=== PATIENT | male | born 1965 | race Caucasian/White ===

== ENCOUNTER 2017-01-05 13:00 | Inpatient (IN) | payer OTHER ==
[~2017-01-05] VITALS: Ht 182.9 cm; Wt 90.7 kg
--- NOTE | ~2017-01-05 | HP ---
Unit #: [id number] #: [id number] Patient: CANDIDO GHOTRA [id number] [place] [address] [id number] MR#: [id number] NAME: CANDIDO GHOTRA ROOM: P184 Age: 51 Sex: M Admission Date: 01/05/2017 : 1965 Attending Physician: Uzair Arredondo M.D. Admitting Physician: Uzair Arredondo M.D. Primary Care Physician: Primary Care Physician No HISTORY AND PHYSICAL HISTORY OF PRESENT ILLNESS Candido is a 51 year old admitted to [facility] because of his continued abuse of alcohol. He has had other admissions to this facility for the same. PAST MEDICAL HISTORY 1. Long history of alcohol abuse. 2. Diabetes mellitus. 3. High blood pressure. 4. Hepatitis C. 5. Psoriasis. PAST SURGICAL HISTORY 1. Cholecystectomy. 2. Appendectomy. ALLERGIES No known drug allergies. SOCIAL HISTORY He does not smoke. Drinks a liter of liquor on daily basis. Has a history of illicit drug use. FAMILY HISTORY Medically noncontributory. REVIEW OF SYSTEMS CONSTITUTIONAL: No fever or chills. HEENT: Denies any sore throat, ear pain or runny nose. CARDIOVASCULAR: Denies chest pain, irregular heart rhythm or palpitations. CHEST: Denies shortness of breath or cough. No hemoptysis. GASTROINTESTINAL: Denies nausea, vomiting, diarrhea or chronic constipation. ENDOCRINE: Denies history of increased thirst or urination. No recent significant weight loss or gain. GENITOURINARY: Denies dysuria, frequency, or hematuria. SKIN: Denies any rashes. HEMATOLOGIC: Denies history of increased bleeding or bruising. MUSCULOSKELETAL: Denies any hot, swollen joints. No generalized muscle pain. NEUROLOGIC: Denies problems with vision or speech. No frequent, severe headaches. No numbness, tingling or weakness in any extremities. Denies loss of bladder or bowel control. Unit #: [id number] #: [id number] Patient: CANDIDO GHOTRA CURRENT MEDICATIONS 1. Detox protocol. 2. Celexa 40 mg q. day. 3. Vistaril 40 mg q. day. 4. Neurontin 400 mg t.i.d. PHYSICAL EXAMINATION GENERAL: Alert, well nourished. No apparent distress. VITAL SIGNS: Blood pressure 174/94, heart rate 80, respirations 16, and temperature 98.6. WEIGHT: 200. HEIGHT: 6 feet 0 inches. SKIN: Warm and dry without rash or lesion. HEENT: Normocephalic. TMs not viewed. Oral and nasal passages clear. Conjunctivae clear. PERRLA. EOMs intact. NECK: Supple without lymphadenopathy or thyromegaly. HEART: Regular rate and rhythm without murmur. LUNGS: Clear. ABDOMEN: Soft, nontender. : Not done. EXTREMITIES: No evidence of cyanosis, clubbing or edema. Moves all without focal deficit. NEUROLOGICAL: Grossly within normal limits. Cranial Nerves: II: Visual alcantar are intact. III, IV AND : Extraocular movements are intact. Pupils are equal, round and reactive to light. V: Facial sensation is grossly normal. VII: Facial movements and expression are normal. VIII: Auditory acuity grossly intact. IX, X: Uvula is midline. Phonation is normal. XI: Patient shrugs shoulders and turns head normally. XII: Tongue protrudes in the midline. Sensory and Motor Function: Sensory and motor sensation is grossly normal. Motor: moves all extremities well. Coordination: Gait is normal. Deep Tendon Reflexes: Intact. IMPRESSION Psychiatric admission. RECOMMENDATIONS PSYCHIATRIC: Per psychiatrist. MEDICAL: I see no contraindication to participate in this facility's activities. MEDICAL PROGNOSIS Good. MEDICAL CONDITION Stable. Dictated by... Prerna Spring P.A.-C. for Thanh Castañeda/vi TD: 01/06/2017 14:51 Unit #: [id number] #: [id number] Patient: CANDIDO GHOTRA JOB #: [id number] HISTORY AND PHYSICAL Page 1 of 1 X Prerna Spring HISTORY AND PHYSICAL
--- NOTE | ~2017-01-05 | DS ---
Unit #: [id number] #: [id number] Patient: KEVIN GHOTRA [id number] [place] [address] [id number] MR#: [id number] NAME: KEVIN GHOTRA ROOM: P184 Age: 51 Sex: M Admission Date: 01/05/2017 : 1965 Discharge Date: 01/09/2017 Attending Physician: Uzair Arredondo M.D. Primary Care Physician: Primary Care Physician No DISCHARGE SUMMARY REASON FOR ADMISSION The patient is a 51-year-old white male, admitted for alcohol detox. HOSPITAL COURSE The patient was admitted to the [facility] and placed on routine detoxification protocol for alcohol. He was continued on previously prescribed home medications including, Celexa, Protonix, and Zestril. The patient was also continued on Neurontin and Glucophage, and Campral was added to address alcohol craving. The patient remained seclusive to room throughout much of his stay in the hospital but his detox was completed as of 01/09/2017, and thus his discharge was ordered. DISCHARGE DIAGNOSES [place] I Alcohol use disorder. Dysthymic disorder. [place] II [place] III Hypertension. Gastroesophageal reflux disease. Diabetes mellitus. [place] IV [place] V DISPOSITION ON DISCHARGE The patient is discharged on the following medications: 1. Glucophage 500 mg twice daily for diabetic management 2. Campral 333 mg two tablets three times daily for alcohol craving 3. Neurontin 400 mg three times daily for chronic pain 4. Zestril 40 mg once daily for hypertension 5. Protonix 40 mg once daily for GERD 6. Celexa 40 mg daily for depression PROGNOSIS The patient's prognosis is considered fair. DIET AND ACTIVITY No dietary or physical restrictions were placed on the patient at the time of discharge. Follow up will take place through the auspices of community mental health resources and the chemical dependence intensive outpatient program. Unit #: [id number] #: [id number] Patient: KEVIN GHOTRA Dictated by... Uzair Arredondo M.D. CB/aguilar TD: 01/12/2017 09:28 JOB #: [id number] DISCHARGE SUMMARY Page 1 of 1 X Uzair Arredondo MD DISCHARGE SUMMARY
--- NOTE | ~2017-01-05 | CO ---
Unit #: [id number] #: [id number] Patient: KEVIN GHOTRA [id number] [place] [address] [id number] MR#: [id number] NAME: KEVIN GHOTRA ROOM: 84 Age: 51 Sex: M Admission Date: 01/05/2017 : 1965 Attending Physician: Uzair Arredondo M.D. Consultation Date: 01/07/2017 CONSULTATION REPORT SUSAN Rey is a 51-year-old with history of diabetes mellitus. He admits he has been noncompliant with any kind of medication. He has been on Glucophage in the past, but has been many months. The patient was seen for his admission H and P on 01/06/2017. PLAN Plan will be to start Glucophage 500 mg one p.o. b.i.d. He knows to follow up with his PCP. Dictated by... Prerna Spring P.A.-C. for Thanh Castañeda/petra TD: 01/22/2017 14:25 JOB #: [id number] CONSULTATION REPORT Page 1 of 1 X Prerna Spring CONSULTATION REPORT
--- NOTE | ~2017-01-05 | PN ---
Unit #: [id number] #: [id number] Patient: KEVIN GHOTRA [id number] [facility] [address] [place] [address] [id number] I MR#: [id number] NAME: KEVIN GHOTRA ROOM: 84 Age: 51 Sex: M Admission Date: 01/05/2017 : 1965 Attending Physician: Uzair Arredondo M.D. Admitting Physician: Uzair Arredondo M.D. Primary Care Physician: Primary Care Physician Tracy ANDERSON PROGRESS NOTES DATE 01/07/2017 DISCUSSION The patient is resting comfortably today. His detox continues uneventfully. We may choose to begin an injectable Vivitrol if the patient is agreeable. Dictated by... Uzair Arredondo M.D. FELIPE/johanna TD: 01/07/2017 15:12 JOB #: [id number] [facility] PROGRESS NOTES Page 1 of 1 X Uzair Arredondo MD PROGRESS NOTE
--- NOTE | ~2017-01-05 | PA ---
Unit #: [id number] #: [id number] Patient: KEVIN GHOTRA [id number] [place] [address] [id number] MR#: [id number] NAME: KEVIN GHOTRA ROOM: P184 Age: 51 Sex: M Admission Date: 01/05/2017 : 1965 Date of Assessment: 01/06/2017 Attending Physician: Uzair Arredondo M.D. Admitting Physician: Uzair Arredondo M.D. Primary Care Physician: Primary Care Physician No PSYCHIATRIC ASSESSMENT IDENTIFYING INFORMATION The patient is a 51-year-old white male admitted for alcohol detox. CHIEF COMPLAINT "Can't stop drinking." INFORMANT(S) Patient, reliability is good. HISTORY OF PRESENT ILLNESS The patient is a 51-year-old white male last admitted to this facility approximately 1 years ago. He has a history of alcohol dependence and maintained sobriety for no significant period of time. After his last discharge, he is drinking a fifth of hard liquor on a daily basis. He denies abuse of other psychoactive substances. The patient is currently prescribed Celexa for mood and is also taking Gabapentin for anxiety. When seen today the patient is rather tremulous and in significant physical distress related to alcohol withdrawal. He has been hypertensive since his admission. PAST PSYCHIATRIC HISTORY As above. PAST MEDICAL HISTORY The patient suffers from diabetes mellitus, hypertension, and GERD. MEDICATIONS Celexa, Prilosec, lisinopril, gabapentin, and metformin. ALLERGIES None. FAMILY HISTORY Noncontributory. SOCIAL HISTORY The patient lives with his . He is a self-employed sherman. He reports alcohol use as noted previously and is a smoker. MENTAL STATUS EXAMINATION Examination at this time reveals the patient to be a well-developed well-nourished white male appearing his stated age. He is tremulous and appears to be in moderate physical distress during interview. He is Unit #: [id number] #: [id number] Patient: KEVIN GHOTRA awake, alert, and oriented in all spheres. His mood is mildly dysphoric, his affect congruent. Speech is generally well coherent. There are no gross deficits in memory or cognition noted. Intelligence is judged to be in the average range based on fund of knowledge. The patient is cooperative throughout the interview. He is currently denying suicidal or homicidal ideation or psychotic features. His judgment and insight appear to be reasonably intact. ASSETS AND LIABILITIES The patient's assets: Motivation for change. Liabilities: Lack of resources. DIAGNOSTIC IMPRESSION 1. Alcohol use disorder. 2. Dysthymic disorder. 3. Gastroesophageal reflux disease. 4. Hypertension. 5. Diabetes mellitus. TREATMENT PLAN The patient remains hospitalized for safety and stabilization. We will continue preciously prescribed medications, and we will add Campral 666 mg 3 times daily for alcohol craving. Consideration may also be given to initiation of naltrexone and possibly ReVia. The patient looks to be a candidate for participation in the intensive outpatient program following discharge which should take place within 3 to 5 days. Dictated by... Uzair Arredondo M.D. Rupali TD: 01/06/2017 14:01 JOB #: [id number] PSYCHIATRIC ASSESSMENT Page 1 of 1 X Uzair Arredondo MD X PSYCHIATRIC ASSESSMENT
--- NOTE | ~2017-01-05 | PN ---
Unit #: [id number] #: [id number] Patient: KEVIN GHOTRA [id number] [facility] [address] [place] [address] [id number] I MR#: [id number] NAME: KEVIN GHOTRA ROOM: 84 Age: 51 Sex: M Admission Date: 01/05/2017 : 1965 Attending Physician: Uzair Arredondo M.D. Admitting Physician: Uzair Arredondo M.D. Primary Care Physician: Primary Care Physician Tracy ANDERSON PROGRESS NOTES DATE 01/08/2017 DISCUSSION The patient is abed resting comfortably today. His detox continues uneventfully. We anticipate probable a.m. discharge with follow up to take place either in the [facility] or in residential chemical dependence treatment. Dictated by... Uzair Arredondo M.D. CB/johanna TD: 01/08/2017 15:13 JOB #: [id number] [facility] PROGRESS NOTES Page 1 of 1 X Uzair Arredondo MD X PROGRESS NOTE
[~2017-01-05 13:00] MED LIST: LORTAB 5/500 TA1 TA1; LORTAB 5/500 TA1 TA1 PO
[2017-01-06 09:49] LABS: URINE APPEARANCE TURBID; URINE BLOOD 2+ (NEG); URINE COLOR DK YELLOW; URINE GLUCOSE 250 MG/DL (NEG); URINE KETONE 1+ (NEG); URINE LEUKOCYTE ESTERASE NEG (NEG); URINE NITRATE NEG (NEG); URINE PROTEIN 3+ (NEG); URINE SPECIFIC GRAVITY 1.021 (1.003-1.035)
[2017-01-06 09:52] LABS: BASOPHIL% 0.4 % (0-2.5); EOSINOPHIL% 0.7 % (0.0-7.0); HEMATOCRIT 39.7 % (38.0-50.0); HEMOGLOBIN 13.6 gm/dL (13.0-16.0); LYMPHOCYTE% 16.9 % (17.0-45.0); MEAN CELL VOLUME 85.5 FL (83-96); MEAN CORPUSCULAR HEMOGLOBIN 29.2 PG (28-34); MEAN CORPUSCULAR HGB CONC 34.2 g/dL (30-36); MEAN PLATELET VOLUME 9.2 FL (6.5-11.5); MONOCYTE# 0.7 X10e3 (0-1.0); MONOCYTE% 11.2 % (3.0-12.0); NEUTROPHIL# 4.3 X10e3 (1.5-7.1); NEUTROPHIL% 70.8 % (40-75); RED BLOOD COUNT 4.64 X10e (3.90-5.60); RED CELL DISTRIBUTION WIDTH 16.8 % (11.0-15.5); WHITE BLOOD COUNT 6.1 X10e3 (4.0-10.5)
[2017-01-06 09:57] LABS: URINE BACTERIA AUWI NEG (NEGATIVE); URINE SQUAMOUS EPITHELIAL CELL NONE SEEN /[HPF]; UWBCS1 AUWI 0-2 (0-5)
[2017-01-06 10:03] LABS: ALBUMIN SERUM 4.1 g/dL (3.5-5.0); BILIRUBIN,TOTAL 2.4 mg/dL (0.2-2.0); BUN/CREATININE RATIO 18.75; CALCIUM SERUM 9.1 mg/dL (8.4-10.2); CREATININE SERUM 0.8 mg/dL (0.6-1.4); POTASSIUM 3.9 mmol/L (3.5-5.1); PROTEIN TOTAL SERUM 7.2 g/dL (6.0-8.3)
[2017-01-06 10:10] LABS: URINE BILIRUBIN NEG (NEG)
[2017-01-06 10:15] LABS: URINE AMORPHOUS SEDIMENT AMORP URATES; URINE MUCUS PRESENT
[2017-01-06 10:24] LABS: AMPHETAMINE NEG (NEG); BARBITURATES NEG (NEG); BENZODIAZEPINES NEG (NEG); COCAINE NEG (NEG); MARIJUANA NEG (NEG); OPIATES NEG (NEG); TRICYCLIC ANTIDEPRESSANTS NEG (NEG); U METHADONE NEG (NEG)
[2017-01-06 10:58] LABS: DIFF IND YES; PLATELET COUNT 90 X10e3 (140-420)
[2017-01-06 11:03] LABS: PLATELET ESTIMATE DECREASED (NORMAL)
[2017-01-06 11:04] LABS: SMUDGE CELLS 9 /100
[2017-01-06 11:07] LABS: ANISOCYTOSIS SL
== END 2017-01-09 17:00 | disposition home or self-care (01) | DRG 897 ==
LOC: P1E 19:24
PROVIDERS: Specialist
PROC: HZ2ZZZZ Detoxification Services for Substance Abuse Treatment (ICD-10-PCS; principal; 2017-01-06)
DX: F10.20 Alcohol dependence, uncomplicated (principal); I10 Essential (primary) hypertension; F34.1 Dysthymic disorder; K21.9 Gastro-esophageal reflux disease without esophagitis; E11.9 Type 2 diabetes mellitus without complications; B19.20 Unspecified viral hepatitis C without hepatic coma; L40.9 Psoriasis, unspecified; Z90.49 Acquired absence of other specified parts of digestive tract
CPT/HCPCS: 80053; 80307; 81003; 85025; 86592; J2550

== ENCOUNTER 2017-01-05 14:04 | Emergency (ER) | payer OTHER ==
[~2017-01-05] VITALS: Ht 182.9 cm; Wt 90.7 kg
--- NOTE | ~2017-01-05 | EKG ---
PATIENT: KEVIN GHOTRA UNIT #: [id number] Ventricular Rate: 127 BPM Atrial Rate: 127 BPM P-R Interval: 164 ms QRS Duration: 88 ms Q-T Interval: 310 ms QTC Calculation(Bezet): 450 ms P [place]: 43 degrees Calculated R [place]: -16 degrees Calculated T [place]: 69 degrees Diagnosis Line: Sinus tachycardia Diagnosis Line: Otherwise normal ECG Diagnosis Line: No previous ECGs available Diagnosis Line: Confirmed by JERRY SCHAEFER MD ([id number]) on Diagnosis Line: 01/05/2017 3:26:02 PM INTERPRETING MD: SILVANO ELIAS
--- NOTE | ~2017-01-05 | CR72 ---
[facility] A Service of [facility] & [facility] RADIOLOGY TEXT RESULTS PATIENT: KEVIN GHOTRA LOCATION: [facility] : [birth year] UNIT #: [id number] AGE: [address]: Zachariah Tang MD SEX: M ORDER DR: [id number] [facility] [address] [place], [place] [address] [id number] MR#: [id number] Acc #: [id number] NAME: KEVIN GHOTRA : 1965 SEX: M STUDY DATE/TIME: 01/05/2017 14:54 UNIT: [facility] ROOM: STUDY DESCRIPTION: CR Chest Single View Portable Attending Physician: Zachariah Tang M.D. Ordering Physician: Zachariah Tang M.D. Primary Care Physician: Primary Care Physician No MEDICAL IMAGING REPORT This report is preliminary unless electronic signature is present EXAM Portable chest, 01/05/2017 HISTORY Hypoxia and shortness of breath today. Benign essential hypertension. FINDINGS A single AP portable view of the chest shows both lungs to be clear. The heart is normal in size. The mediastinal contour is normal. No significant bone abnormalities are seen. IMPRESSION Normal portable chest. Dictated by... Jean Jensen M.D. THIS IS AN ELECTRONICALLY VERIFIED REPORT Jean Jensen M.D. at 01/06/2017 7:22 AM JUAN FRANCISCO/parker TD: 01/06/2017 02:06 JOB #: [id number] MEDICAL IMAGING REPORT Page 1 of 1 COPY
== END 2017-01-05 17:45 | disposition short-term general hospital (02) ==
LOC: CED 14:04
DX: F10.10 Alcohol abuse, uncomplicated (principal); R05 Cough; I10 Essential (primary) hypertension; E11.9 Type 2 diabetes mellitus without complications; Z90.49 Acquired absence of other specified parts of digestive tract
CPT/HCPCS: 71010; 93005; 96360; 99285